=== PATIENT | male | born 1980 | race American Indian/Alaskan Native ===

== ENCOUNTER 2016-11-28 19:28 | Emergency (ER) | payer MEDICAID ==
[2016-11-28 19:36] VITALS: BMI 39.5
[2016-11-28 19:46] VITALS: BP 158/88; PULSE 96; RESP 18; TEMP 99; O2SAT 100
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
--- NOTE | 2016-11-29 08:54 | RAD ---
PROCEDURE: Left Hand Radiographs. HISTORY: post reduction COMPARISON: None. FINDINGS: BONES: Normal. No fracture. JOINTS: Normal. No osteoarthritic changes. SOFT TISSUES: Normal. OTHER FINDINGS: None. IMPRESSION: Successful reduction of 5th PIP dislocation
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
== END 2016-11-28 20:23 | disposition home or self-care (01) ==
LOC: ED 19:28
DX: S62.617A Displaced fracture of proximal phalanx of left little finger, initial encounter for closed fracture (principal); Y04.2XXA Assault by strike against or bumped into by another person, initial encounter; Y92.9 Unspecified place or not applicable

== ENCOUNTER 2016-12-04 19:26 | Emergency (ER) | payer MEDICAID ==
[2016-12-04 19:26] VITALS: BMI 39.5
== END 2016-12-04 20:15 | disposition left against medical advice (07) ==
LOC: ED 19:26
DX: Z02.89 Encounter for other administrative examinations (principal); Z00.00 Encounter for general adult medical examination without abnormal findings

== ENCOUNTER 2016-12-06 05:10 | Emergency (ER) | payer MEDICAID ==
[2016-12-06 05:13] VITALS: BMI 39.8
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
[2016-12-06] MEDS ORDERED: Morphine 2 mg/ml ISec IVP STA (06:36)
[2016-12-06 06:56] LABS: ADD MANUAL DIFF? NO
[2016-12-06 07:10] LABS: ALB/GLOB RATIO 1.2 (1.1-1.8); ALKALINE PHOSPHATASE 41 U/L (38-133); ALT/SGPT 48 U/L (7-56); AST/SGOT 65 U/L (15-59); BILIRUBIN,TOTAL 0.8 mg/dL (0.2-1.3); BLOOD UREA NITROGEN 13 mg/dL (7-21); CALCIUM 9.3 mg/dL (8.4-10.5); CARBON DIOXIDE 32 mmol/L (21-33); CHLORIDE 98 mmol/L (98-107); GFR AFRICAN-AMERICAN > 60; GLUCOSE,RANDOM 100 mg/dL (70-110); POTASSIUM 4.3 mmol/L (3.6-5.0); SODIUM 139 mmol/L (132-148); TOTAL PROTEIN 8.5 g/dL (5.8-8.3)
[2016-12-06 07:13] LABS: BASO # 0.01 K/mm3 (0.0-2.0); BASO % 0.2 % (0.0-3.0); EOS % 0.2 % (1.5-5.0); GRAN # 5.01 (1.4-6.5); GRAN % 75.2 % (50.0-68.0); HEMATOCRIT 40.2 % (42.0-52.0); LYMPH # 1.1 (1.2-3.4); LYMPH % 16.1 % (22.0-35.0); MEAN CELL VOLUME 88.9 fL (80.0-105.0); MEAN CORPUSCULAR HEMOGLOBIN 31.2 pg (25.0-35.0); MEAN CORPUSCULAR HGB CONC 35.1 g/dl (31.0-37.0); MEAN PLATELET VOLUME 10.5 fl (7.0-11.0); MONO # 0.6 (0.1-0.6); MONO % 8.3 % (1.0-6.0); PLATELET COUNT 211 10^3/uL (120.0-450.0); RED CELL DISTRIBUTION WIDTH 12.7 % (11.5-14.5); WHITE BLOOD COUNT 6.7 10^3/ul (4.5-11.0)
[2016-12-06 07:17] VITALS: RESP 18
[2016-12-06 08:23] VITALS: BP 156/93; PULSE 92; TEMP 98.1; O2SAT 100
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
--- NOTE | 2016-12-06 11:01 | RAD ---
PROCEDURE: Left elbow dated 12/06/2016. AP and lateral views of the left elbow performed HISTORY: trauma COMPARISON: No prior. FINDINGS: BONES: Normal. No fracture. JOINTS: Normal. No osteoarthritis. SOFT TISSUES: Normal. JOINT EFFUSION: None. OTHER FINDINGS: None IMPRESSION: No definite evidence of acute displaced fracture nor dislocation. If symptoms persist or occult fracture suspected clinically recommend repeat radiographs in 5-10 days as most fractures should become radiographically evident in this timeframe.
== END 2016-12-06 08:35 | disposition short-term general hospital (02) ==
LOC: ED 05:10
DX: S02.609B Fracture of mandible, unspecified, initial encounter for open fracture (principal); Y09 Assault by unspecified means; Y92.410 Unspecified street and highway as the place of occurrence of the external cause; F17.210 Nicotine dependence, cigarettes, uncomplicated
CPT/HCPCS: 70450; 70486; 73080; 73130; 80053; 85025; 96374; 99285; J0690; J2270

== ENCOUNTER 2017-01-01 16:02 | Emergency (ER) | payer MEDICAID ==
[2017-01-01 16:36] VITALS: BMI 31.4
--- NOTE | 2017-01-01 16:42 | ED PDOC ---
Arrival/HPI <Catina Cates - Last Filed: 01/01/17 23:21> <Dennis Lopez - Last Filed: 01/02/17 04:46> - General Historian: Patient EM Caveat: Intoxicated <Donovan Hernandez - Last Filed: 01/02/17 17:35> - General Time Seen by Provider: 01/01/17 16:15 - History of Present Illness Narrative History of Present Illness (Text): 01/01/17 16:39 36 y/o male, pmh including mandible fracture with the wired jaw, psychiatric history including PCP, intoxicated, biba with the police for the PCP usage and agitated behavior. Pt. stated that he is fine except he has pain on the rt. posterior occipital region which he didn't fall or trauma, no dizziness, no night sweat, no palpitation, no rash, no auditory or visual hallucinations, no homicidal or suicidal ideation, no other medical or psychological complaints. (Donovan Hernandez) Past Medical History - Provider Review Nursing Documentation Reviewed: Yes - Infectious Disease Hx of Infectious Diseases: None - Tetanus Immunization Tetanus Immunization: Up to Date - Cardiac Hx Cardiac Disorders: No - Pulmonary Hx Respiratory Disorders: No - Neurological Hx Neurological Disorder: No - HEENT Hx HEENT Disorder: No - Renal Hx Renal Disorder: No - Endocrine/Metabolic Hx Endocrine Disorders: No - Hematological/Oncological Hx Blood Disorders: Yes Hx Cancer: Yes (neck) - Integumentary Hx Dermatological Disorder: No - Musculoskeletal/Rheumatological Hx Musculoskeletal Disorders: No - Gastrointestinal Hx Gastrointestinal Disorders: No - Genitourinary/Gynecological Hx Genitourinary Disorders: No - Psychiatric Hx Psychophysiologic Disorder: Yes Hx Depression: Yes Hx Substance Use: Yes (reported used PCP) - Surgical History Other/Comment: Neck - Anesthesia Hx Anesthesia: (UTO) - Suicidal Assessment Feels Threatened In Home Enviroment: No <Donovan Hernandez - Last Filed: 01/02/17 17:35> Family/Social History - Physician Review Nursing Documentation Reviewed: Yes Family/Social History: Unknown Family HX Smoking Status: Heavy Smoker > 10 Cigarettes Daily Hx Alcohol Use: Yes Hx Substance Use: Yes (reported used PCP) Substance used: marijuana Hx Substance Use Treatment: No <Donovan Hernandez - Last Filed: 01/02/17 17:35> Allergies/Home Meds <Catina Cates - Last Filed: 01/01/17 23:21> <JessicaDennis - Last Filed: 01/02/17 04:46> <Donovan Hernandez - Last Filed: 01/02/17 17:35> Allergies/Adverse Reactions: Allergies No Known Allergies Allergy (Verified 12/06/16 05:13) Home Medications: Home Meds Medication Instructions Recorded Confirmed No Known Home Med 12/06/16 12/06/16 Review of Systems - Review of Systems Systems not reviewed;Unavailable: Other (intoxicated and uncooperative) Constitutional: absent: Fatigue, Fevers Eyes: absent: Vision Changes ENT: absent: Hearing Changes Respiratory: absent: Cough, Sputum Cardiovascular: absent: Chest Pain Gastrointestinal: absent: Abdominal Pain Musculoskeletal: absent: Arthralgias, Back Pain, Neck Pain, Joint Swelling, Myalgias Neurological: Headache. absent: Dizziness, Focal Weakness, Gait Changes, Speech Changes, Facial Droop, Disequilibrium, Seizure <Donovan Hernandez - Last Filed: 01/02/17 17:35> Physical Exam - Physical Exam Physical Exam Limitations: Intoxication Vital Signs Reviewed: Yes Temperature: Afebrile Blood Pressure: Normal Pulse: Regular Respiratory Rate: Normal Appearance: Positive for: Well-Appearing, Non-Toxic, Comfortable Pain Distress: None Mental Status: Positive for: other (intoxicated) - Systems Exam Head: Present: Other (+ttp on the rt. posterior occipital region with no abrasion or laceration. ) Pupils: Present: PERRL Extroacular Muscles: Present: EOMI Conjunctiva: Present: Normal Ears: Present: NORMAL TM, Normal Canal. No: Erythema, TM Bulging, Fluid Mouth: Present: Moist Mucous Membranes, Other (jaw wired noted) Pharnyx: No: ERYTHEMA, EXUDATE, TONSILS ENLARGED, Peritonsilar Swelling, Soft Palate/Uvular Edema Nose (External): No: Abrasion, Contusion, Laceration, Lesions Nose (Internal): Present: Normal Inspection, No Active Bleeding. No: Rhinorrhea , Septal Hematoma, Epistaxis Neck: Present: Normal Range of Motion, Trachea Midline. No: MIDLINE TENDERNESS , Paraspinal Tenderness, Lymphadenopathy Respiratory/Chest: Present: Clear to Auscultation, Good Air Exchange. No: Respiratory Distress, Accessory Muscle Use Cardiovascular: Present: Regular Rate and Rhythm, Normal S1, S2. No: Murmurs Abdomen: Present: Normal Bowel Sounds. No: Tenderness, Distention, Peritoneal Signs Back: Present: Normal Inspection. No: Midline Tenderness, Paraspinal Tenderness Upper Extremity: Present: Normal Inspection. No: Cyanosis, Edema Lower Extremity: Present: Normal Inspection. No: Edema Neurological: Present: GCS=15, Speech Normal, Motor Func Grossly Intact, Norm Deep Tendon Reflexes, Gait Normal, Memory Normal Skin: Present: Warm, Dry, Normal Color. No: Rashes Psychiatric: Present: Alert, Delusional, Intoxicated <Donovan Hernandez - Last Filed: 01/02/17 17:35> Vital Signs Temp Pulse Resp BP Pulse Ox 01/02/17 04:28 98.3 F 81 18 139/99 H 98 01/02/17 02:28 85 18 133/83 98 01/01/17 23:53 88 16 139/75 98 01/01/17 22:00 98 F 85 16 140/75 100 01/01/17 20:02 98.2 F 77 16 130/78 97 01/01/17 16:02 99.0 F 70 18 133/85 99 Medical Decision Making <Catina Cates - Last Filed: 01/01/17 23:21> <Dennis Lopez - Last Filed: 01/02/17 04:46> - Lab Interpretations I have reviewed the lab results: Yes Interpretation: No clinic. lab abnormalty - RAD Interpretation Melt Helper: Radiologist <Donovan Hernandez - Last Filed: 01/02/17 17:35> ED Course and Treatment: 01/01/17 22:21 Patient arousable, answers questions. CT head pending as there is prior history of facial injury reportedly over past week. He expresses depression to me. No respiratory distress. Urine drug screen pending, patient states he does not have to urinate. No focal motor or sensory deficits noted on re-exam. 01/01/17 23:[address] reviewed. Prior visit reviewed patient with past history of maxillofacial trauma, treated at [facility]. CT Head with no acute bleeding. UA pending, plan to continue serial exams, when medically cleared have assessed for PES evaluation as he expresses depression reqarging "my cousin recently ", denies suicidal ideation. (Catina Cates) 01/02/17 04:24 Pt seen and evaluated by PES screener Venecia, who discussed case with Dr. Hayes. Pt instructed to follow up outpt for substance abuse. Pt agreeable with plan. (Dennis Lopez) 01/01/17 16:43 -CT head -Labs/ua -chest x-ray -IVF -Observe and reassess 01/01/17 17:40 -Incentive spirometer ordered for actelectasis. -Pt. is standing on the door way about to fall over which I notified the assigned RN that he is intoxicated, risk for flight, will need sedation and possibly restraints, notify the [place] Police if the patient is agitated. -Pt. is agitated, risk for elopement, refusing vital signs, refusing labs/ radiology studies, uncooperative, aggressive, under the influence of PCP, will restraint and/or sedate the patient if indicated. Restraint order placed on the patient. 01/01/17 21:25 -Labs are non-significant -Chest x-ray show no acute findings -Pending CT Head -Pt. is calmed now, awake, non-agitated, restraints discontinue. Case sign out to the ER attending DR. Cates, he will follow up with the patient and dispo the patient. (Donovan Hernandez) - Lab Interpretations Lab Results: 01/01/17 18:40 01/01/17 18:40 Lab Results 01/02/17 01:13: Urine Opiates Screen Negative, Urine Methadone Screen Negative, Ur Barbiturates Screen Negative, Ur Phencyclidine Scrn Positive H, Ur Amphetamines Screen Negative, U Benzodiazepines Scrn Negative, U Oth Cocaine Metabols Negative, U Cannabinoids Screen Negative 01/02/17 01:13: Urine Color Yellow, Urine Appearance Clear, Urine pH 6.5, Ur Specific [place] <= 1.005, Urine Protein Negative, Urine Glucose (UA) Negative, Urine Ketones Negative, Urine Blood Negative, Urine Nitrate Negative, Urine Bilirubin Negative, Urine Urobilinogen 0.2, Ur Leukocyte Esterase Negative 01/01/17 18:40: Salicylates < 1 L 01/01/17 18:40: Alcohol, Quantitative < 10 01/01/17 18:40: Sodium 138, Potassium 4.5, Chloride 97 L, Carbon Dioxide 31, Anion Gap 15, BUN 14, Creatinine 1.2, Est GFR ( Amer) > 60, Est GFR (Non- Af Amer) > 60, Random Glucose 100, Calcium 10.0, Total Bilirubin 0.9, AST 47, ALT 65 H, Alkaline Phosphatase 43, Total Creatine Kinase 224, Total Protein 8.6 H, Albumin 4.6, Globulin 3.9, Albumin/Globulin Ratio 1.2 01/01/17 18:40: WBC 4.2 L D, RBC 4.28, Hgb 13.3 L, Hct 38.1 L, MCV 89.0, MCH 31.1, MCHC 34.9, RDW 12.5, Plt Count 200, MPV 10.0, Gran % 61.0, Lymph % (Auto) 29.5, [place] % (Auto) 8.3 H, Eos % (Auto) 0.7 L, Baso % (Auto) 0.5, Gran # 2.57, Lymph # 1.2, Butler # 0.4, Eos # 0.0, Baso # 0.02 - RAD Interpretation Radiology Orders: 01/01/17 16:36 HEAD W/O CONTRAST [CT] Stat 01/01/17 16:37 CHEST PORTABLE [RAD] Stat HISTORY: medical clearance COMPARISON: Comparison chest 05/02/2016 FINDINGS: LUNGS: Poor inspiration with low lung volumes, crowded bronchovascular markings and mild bibasilar atelectasis. PLEURA: No significant pleural effusion identified, no pneumothorax apparent. CARDIOVASCULAR: Normal. OSSEOUS STRUCTURES: No significant abnormalities. VISUALIZED UPPER ABDOMEN: Normal. OTHER FINDINGS: None. IMPRESSION: Poor inspiration with low lung volumes, mild crowded bronchovascular markings and mild bibasilar atelectasis. (Donovan Hernandez) - Medication Orders Current Medication Orders: Discontinued Medications Haloperidol Lactate (Haldol) 5 mg IM STAT STA PRN Reason: Protocol Stop: 01/01/17 17:41 Last Admin: 01/01/17 17:55 Dose: 5 mg Haloperidol Lactate (Haldol) Confirm Administered Dose 5 mg .ROUTE .STK-MED ONE Stop: 01/01/17 17:46 Last Admin: 01/01/17 17:56 Dose: Sodium Chloride (Sodium Chloride 0.9%) 1,000 mls @ 999 mls/hr IV .Q1H1M STA Stop: 01/01/17 17:44 Last Admin: 01/01/17 16:55 Dose: Not Given Non-Admin Reason: Patient Refused Lorazepam (Ativan) 2 mg IM ONCE ONE PRN Reason: Protocol Stop: 01/01/17 17:41 Last Admin: 01/01/17 17:55 Dose: 2 mg Lorazepam (Ativan) Confirm Administered Dose 2 mg .ROUTE .STK-MED ONE Stop: 01/01/17 17:47 Last Admin: 01/01/17 17:56 Dose: - PA / APPLICATION HELPER / Resident Statement ARAVIND has reviewed & agrees with the documentation as recorded. <Donovan Hernandez - Last Filed: 01/02/17 17:35> Disposition/Present on Arrival <Catina Cates - Last Filed: 01/01/17 23:21> - Present on Arrival Any Indicators Present on Arrival: No - Disposition Have Diagnosis and Disposition been Completed?: Yes Patient Plan: Discharge <Dennis Lopez - Last Filed: 01/02/17 04:46> - Present on Arrival Any Indicators Present on Arrival: No History of DVT/PE: No History of Uncontrolled Diabetes: No Urinary Catheter: No History of Decub. Ulcer: No History Surgical Site Infection Following: None - Disposition Have Diagnosis and Disposition been Completed?: Yes Disposition Time: 21:26 <Donovan Hernandez - Last Filed: 01/02/17 17:35> - Disposition Diagnosis: PCP (phencyclidine) abuse Disposition: HOME/ ROUTINE Condition: GOOD Additional Instructions: Avoid PCP drug use/follow up outpatient [facility] as instructed Referrals: Mary Nice DO [Primary Care Provider] - Follow up with primary Hermelinda La MD [Staff Provider] - Follow up with primary
[2017-01-01] MEDS ORDERED: Sodium Chloride 0.9% 1,000 ML IV STA (16:44)
--- NOTE | 2017-01-01 17:08 | RAD ---
HISTORY: medical clearance COMPARISON: Comparison chest 05/02/2016 FINDINGS: LUNGS: Poor inspiration with low lung volumes, crowded bronchovascular markings and mild bibasilar atelectasis. PLEURA: No significant pleural effusion identified, no pneumothorax apparent. CARDIOVASCULAR: Normal. OSSEOUS STRUCTURES: No significant abnormalities. VISUALIZED UPPER ABDOMEN: Normal. OTHER FINDINGS: None. IMPRESSION: Poor inspiration with low lung volumes, mild crowded bronchovascular markings and mild bibasilar atelectasis.
[2017-01-01 18:48] LABS: ADD MANUAL DIFF? NO
[2017-01-01 18:57] LABS: BASO # 0.02 K/mm3 (0.0-2.0); BASO % 0.5 % (0.0-3.0); EOS % 0.7 % (1.5-5.0); GRAN # 2.57 (1.4-6.5); HEMATOCRIT 38.1 % (42.0-52.0); LYMPH # 1.2 (1.2-3.4); LYMPH % 29.5 % (22.0-35.0); MEAN CORPUSCULAR HEMOGLOBIN 31.1 pg (25.0-35.0); MEAN CORPUSCULAR HGB CONC 34.9 g/dl (31.0-37.0); MONO # 0.4 (0.1-0.6); MONO % 8.3 % (1.0-6.0); PLATELET COUNT 200 10^3/uL (120.0-450.0); RED CELL DISTRIBUTION WIDTH 12.5 % (11.5-14.5); WHITE BLOOD COUNT 4.2 10^3/ul (4.5-11.0)
[2017-01-01 19:06] LABS: ALB/GLOB RATIO 1.2 (1.1-1.8); ALKALINE PHOSPHATASE 43 U/L (38-133); ALT/SGPT 65 U/L (7-56); AST/SGOT 47 U/L (15-59); BILIRUBIN,TOTAL 0.9 mg/dL (0.2-1.3); BLOOD UREA NITROGEN 14 mg/dL (7-21); CARBON DIOXIDE 31 mmol/L (21-33); CHLORIDE 97 mmol/L (98-107); GFR AFRICAN-AMERICAN > 60; GLUCOSE,RANDOM 100 mg/dL (70-110); POTASSIUM 4.5 mmol/L (3.6-5.0); SODIUM 138 mmol/L (132-148); TOTAL PROTEIN 8.6 g/dL (5.8-8.3)
--- NOTE | 2017-01-01 22:41 | CT ---
EXAM: CT Head Without Intravenous Contrast CLINICAL HISTORY: 36 years old, male; Pain; Headache; Headache not specified; Additional info: Posterior headache, drug abuse TECHNIQUE: Axial computed tomography images of the head/brain without intravenous contrast. This CT exam was performed using one or more of the following dose reduction techniques: automated exposure control, adjustment of the mA and/or kV according to patient size, and/or use of iterative reconstruction technique. COMPARISON: CT - HEAD W/O CONTRAST 12/06/2016 5:29:59 AM FINDINGS: Brain: There is no evidence of intracranial hemorrhage. No evidence of acute territorial infarction. No significant white matter disease. No edema. Ventricles: Unremarkable. No ventriculomegaly. Bones/joints: Unremarkable. No acute fracture. Soft tissues: Unremarkable. Sinuses: There is mucous retention cyst or polyp in the left maxillary sinus. Mastoid air cells: Unremarkable as visualized. No mastoid effusion. IMPRESSION: 1. No evidence for acute intracranial abnormality or displaced calvarial fracture. 2. Additional incidental and/or chronic findings as described.
[2017-01-01 23:54] VITALS: O2SAT 98
[2017-01-02 01:37] LABS: PH,URINE 6.5 (4.7-8.0); URINE BILIRUBIN NEGATIVE (NEGATIVE); URINE BLOOD NEGATIVE (NEGATIVE); URINE GLUCOSE (UA) NEGATIVE (NEGATIVE); URINE KETONE NEGATIVE (NEGATIVE); URINE LEUKOCYTE ESTERASE NEGATIVE Leu/uL (NEGATIVE); URINE PROTEIN NEGATIVE mg/dL (<30 mg/dL); URINE UROBILINOGEN 0.2 E.U./dL (<1 E.U./dL)
[2017-01-02 01:38] LABS: URINE APPEARANCE CLEAR (CLEAR); URINE COLOR YELLOW (YELLOW)
[2017-01-02 04:28] VITALS: RESP 18
[2017-01-02 04:29] VITALS: BP 139/99; PULSE 81; TEMP 98.3
== END 2017-01-02 05:02 | disposition home or self-care (01) ==
LOC: ED 16:02
DX: F16.10 Hallucinogen abuse, uncomplicated (principal)
CPT/HCPCS: 70450; 71010; 80053; 80320; 80324; 80329; 80345; 80346; 80349; 80353; 80358; 80361; 81003; 82550; 83992; 85025; 96372; 99285; J1630; J2060

== ENCOUNTER 2018-07-30 22:33 | Emergency (ER) | payer MEDICAID ==
[2018-07-30 22:43] VITALS: BMI 26.4
[2018-07-30 22:46] VITALS: BP 128/84; PULSE 88; RESP 18; TEMP 98.7; O2SAT 99
--- NOTE | 2018-07-30 22:56 | ED PDOC ---
Arrival/HPI - General Chief Complaint: Alcohol Ingestion Time Seen by Provider: 07/30/18 22:47 Historian: Patient - History of Present Illness Narrative History of Present Illness (Text): 07/30/18 22:56 Osman John is a 37 year old male, whose past medical history includes substance abuse and jaw fracture, who presents to the Emergency department brought in by EMS for possible substance abuse. Patient was found outside with possible alcohol/substance abuse. Patient states he feels fine. Patient denies any fever, chills, chest pain, shortness of breath, nausea, vomiting, diarrhea, urinary symptoms, back pain, neck pain, headache, dizziness, or any other complaints. Symptom Onset: Gradual Symptom Course: Unchanged Activities at Onset: Light Context: Street Past Medical History - Provider Review Nursing Documentation Reviewed: Yes - Infectious Disease Hx of Infectious Diseases: None - Tetanus Immunization Tetanus Immunization: Up to Date - Cardiac Hx Cardiac Disorders: No - Pulmonary Hx Respiratory Disorders: No - Neurological Hx Neurological Disorder: No - HEENT Hx HEENT Disorder: No - Renal Hx Renal Disorder: No - Endocrine/Metabolic Hx Endocrine Disorders: No - Hematological/Oncological Hx Blood Disorders: Yes Hx Cancer: Yes (neck) - Integumentary Hx Dermatological Disorder: No - Musculoskeletal/Rheumatological Hx Musculoskeletal Disorders: No - Gastrointestinal Hx Gastrointestinal Disorders: No - Genitourinary/Gynecological Hx Genitourinary Disorders: No - Psychiatric Hx Psychophysiologic Disorder: Yes Hx Depression: Yes Hx Substance Use: Yes (reported used PCP) - Surgical History Other/Comment: Neck - Anesthesia Hx Anesthesia: (UTO) - Suicidal Assessment Feels Threatened In Home Enviroment: No Family/Social History - Physician Review Nursing Documentation Reviewed: Yes Family/Social History: Unknown Family HX Smoking Status: Heavy Smoker > 10 Cigarettes Daily Hx Alcohol Use: Yes Hx Substance Use: Yes (reported used PCP) Substance used: marijuana Hx Substance Use Treatment: No Allergies/Home Meds Allergies/Adverse Reactions: Allergies No Known Allergies Allergy (Verified 12/06/16 05:13) Home Medications: Home Meds Medication Instructions Recorded Confirmed RX: No Known Home Med 12/06/16 12/06/16 Review of Systems - Physician Review All systems were reviewed & negative as marked: Yes - Review of Systems Constitutional: Normal. absent: Fevers Eyes: Normal ENT: Normal Respiratory: Normal. absent: SOB, Cough Cardiovascular: Normal. absent: Chest Pain Gastrointestinal: Normal. absent: Abdominal Pain, Diarrhea, Nausea, Vomiting Genitourinary Male: Normal. absent: Dysuria, Frequency, Hematuria, Urinary Output Changes Musculoskeletal: Normal. absent: Back Pain, Neck Pain Skin: Normal. absent: Rash Neurological: Normal. absent: Headache, Dizziness Endocrine: Normal Hemo/Lymphatic: Normal Psychiatric: Normal Physical Exam Vital Signs Reviewed: Yes Vital Signs Temp Pulse Resp BP Pulse Ox 07/30/18 22:43 98.7 F 88 18 128/84 99 Temperature: Afebrile Blood Pressure: Normal Pulse: Regular Respiratory Rate: Normal Appearance: Positive for: Well-Appearing, Non-Toxic, Comfortable Pain Distress: None Mental Status: Positive for: Alert and Oriented X 3 - Systems Exam Head: Present: Atraumatic, Normocephalic Pupils: Present: PERRL Extroacular Muscles: Present: EOMI Conjunctiva: Present: Normal Mouth: Present: Moist Mucous Membranes Neck: Present: Normal Range of Motion Respiratory/Chest: Present: Clear to Auscultation, Good Air Exchange. No: Respiratory Distress, Accessory Muscle Use Cardiovascular: Present: Regular Rate and Rhythm, Normal S1, S2. No: Murmurs Abdomen: No: Tenderness, Distention, Peritoneal Signs Back: Present: Normal Inspection Upper Extremity: Present: Normal Inspection. No: Cyanosis, Edema Lower Extremity: Present: Normal Inspection. No: Edema Neurological: Present: GCS=15, CN II-XII Intact, Speech Normal Skin: Present: Warm, Dry, Normal Color. No: Rashes Psychiatric: Present: Alert, Oriented x 3, Normal Insight, Normal Concentration Medical Decision Making ED Course and Treatment: 07/30/18 22:56 Impression: 37 year old male for possible substance abuse. Plan: -- Reassess and disposition Prior Visits: Notes and results from previous visits were reviewed. Progress Notes: 07/30/18 23:32 As per RN, pt apollod from Emergency department. - Scribe Statement The provider has reviewed the documentation as recorded by the Moises Vuong Provider Scribe Attestation: All medical record entries made by the Scribe were at my direction and personally dictated by me. I have reviewed the chart and agree that the record accurately reflects my personal performance of the history, physical exam, medical decision making, and the department course for this patient. I have also personally directed, reviewed, and agree with the discharge instructions and disposition. Disposition/Present on Arrival - Present on Arrival Any Indicators Present on Arrival: No History of DVT/PE: No History of Uncontrolled Diabetes: No Urinary Catheter: No History of Decub. Ulcer: No History Surgical Site Infection Following: None - Disposition Have Diagnosis and Disposition been Completed?: Yes Diagnosis: PCP abuse Disposition: ELOPEMENT - ER ONLY Disposition Time: 23:25 Condition: UNKNOWN Referrals: FAMILY PROVIDER,NO [Primary Care Provider] - Follow up with primary Forms: [employer] ([place])
== END 2018-07-30 23:30 | disposition left against medical advice (07) ==
LOC: ED 22:33
DX: F16.10 Hallucinogen abuse, uncomplicated (principal)